=== PATIENT | female | born 1995 | race Caucasian/White ===

== ENCOUNTER 2022-11-04 17:30 | Outpatient (CLI) | payer MEDICAID, SELFPAY ==
[2022-11-04 17:48] VITALS: BMI 26.8
[2022-11-04 17:59] VITALS: BP 126/65; PULSE 98
[2022-11-04 18:00] VITALS: TEMP 37.2
[2022-11-04 18:01] VITALS: PULSE 99; O2SAT 98
[2022-11-04 18:29] LABS: ROM Internal Control Test YES-OK TO RESULT pt. (Internal QC); ROM Patient Test Negative (Negative)
--- NOTE | 2022-11-04 18:44 | OB.TRI.HP_ITS ---
HPI - General General Date of Service: 11/04/22 HPI Narrative BIMAL OFWLER, is a 27 F who presents with LOF. She reports some loss of fluid since yesterday. Denies contractions. Maternal Data Information Final YUNG: 11/26/22 Gestational age: 36&6 PFSH [facility] Medical History (Updated 11/04/22 @ 18:[address] Adela Goldman MD) Threatened labor Allergy/AdvReac Type Severity Reaction Status Date / Time No Known Allergies Allergy Verified 11/04/22 17:49 Physical Exam Const alert, oriented x3 and no apparent distress Chest inspection of chest normal external exam normal Narrative: cvx - .5/0/-3 NST FHR Rate Baby A Baseline: 135 Variability:: Moderate Accelerations:: 15 x 15 Decelerations:: None Uterine Activity:: quiet Assessment & Plan (1) Threatened labor: COMMENT: @ 36&6 PLAN: ROM negative TAUS (bedside) shows vtx fetus with AFV of 12 Patient reassured no evidence of PPROM Offered follow up in my office next week and would at least follow up with playground attendant
== END 2022-11-04 19:04 | disposition home or self-care (01) ==
LOC: WPOUT 17:46 → WP 17:47
PROVIDERS: Referring Provider Obstetrics & Gynecology; Visit Provider Obstetrics & Gynecology
DX: O47.03 False labor before 37 completed weeks of gestation, third trimester (principal); Z3A.36 36 weeks gestation of pregnancy
CPT/HCPCS: 59025; 59050; 76815; 84112; 99221; G0378